=== PATIENT | male | born 1960 | race Caucasian/White ===

== ENCOUNTER 2023-11-10 08:52 | Outpatient (AMB) | payer BC, SELFPAY ==
--- NOTE | 2023-11-10 09:08 | HO.SPINEOV ---
Intake Visit Reasons: low back pain Intake Note: Mr. 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 HPI: This 62-year-old male has a history of a L4-5 lumbar microdiskectomy 2020 for left lumbar radiculopathy to which he responded well. He returns to my office with new complaints. He states he developed pain radiating to the outside of his lower leg and to a lesser degree to his left leg. The pain started approximately 3 months ago. He went to physical therapy which significantly aggravated the right lumbar radiculopathy. He can not sleep due to the pain. The pain is always there. There is no clear relationship with activities. 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 On exam there are no focal deficits. Straight leg raise is positive with radiating pain to the outside of his right lower leg. He had an MRI done on 09/27/2023 that shows [id number] lumbar stenosis in the low lumbar region. However, significant nerve compression is absent. The MRI was done before the start of the physical therapy the patient mentioned that his pain was aggravated following physical therapy and therefore I prefer to have a new MRI of the lumbar spine to determine what treatment options would be appropriate. If the MRI comes back similar to the previous MRI then I would like to refer for a epidural steroid injection. We will follow-up after the MRI. I spent 30 minutes in his consult to review documents, MRI and discussing plan of care. Nghia Lovelace MD, PhD Spine Fellowship Trained Neurosurgeon Director, [facility] Orders: Orders MR lumbar spine wo con Today M54.16 - Radiculopathy, lumbar region Coding Level of Care Code New Pt Level 3 (68422) Diagnoses Bilateral lumbar radiculopathy M54.16
== END 2023-11-10 09:33 | disposition home or self-care (01) ==
PROVIDERS: PCP Internal Medicine; Referring Provider Internal Medicine; Visit Provider Neurological Surgery
DX: M54.16 Radiculopathy, lumbar region (principal)
CPT/HCPCS: 99203

== ENCOUNTER → 2023-11-10 08:52 | Outpatient (BNVA) | payer BC, SELFPAY | PROVIDERS: PCP Internal Medicine; Visit Provider Neurological Surgery ==

== ENCOUNTER → 2023-12-04 19:32 | Outpatient (BNV) | payer BC, SELFPAY | PROVIDERS: PCP Internal Medicine; Visit Provider Radiology Diagnostic Radiology | DX: M54.16 Radiculopathy, lumbar region (principal) | CPT/HCPCS: 72148 ==

== ENCOUNTER 2023-12-04 19:39 | Outpatient (REF) | payer BC, SELFPAY ==
--- NOTE | ~2023-12-04 | MR_ITS ---
EXAMINATION: MR LUMBAR SPINE WITHOUT CONTRAST CLINICAL INFORMATION: Lumbar radiculopathy. Low back pain, radiating down right leg with associated weakness and numbness. Prior left-sided back surgery in 2020 at [facility]. COMPARISON: None available. TECHNIQUE: Multiplanar multisequence MR imaging of the lumbar spine was done without IV contrast. Examination was performed on a 1.5 Thao GE unit. Standard sequences utilized. FINDINGS: Coronal Alignment: Normal. Sagittal Alignment: Normal lordosis. There is a trace 2 mm degenerative retrolisthesis of L3 on L4, and a trace 2 mm retrolisthesis of L5 on S1. Lumbosacral Junction: Normal. There are 5 ppc-hys-aqiaizu lumbar-type vertebral bodies. Vertebral Bodies/Bone Marrow: Well maintained with normal height. No compression fractures, anomalies or other deformities. Mild edematous endplate changes are present at L4-L5. Minimal edematous changes oriented to the left at L5-S1. A few scattered Schmorl's nodes are evident in the endplates. Discs: Mild loss of disc height and signal T11-T12, T12-L1, and moderate loss at L4-L5. There is severe loss at L5-S1 with disc vacuum phenomenon. L1-L4 discs appear normal in height with minimal desiccation. Spinal Canal: There is a congenitally narrow spinal canal with short pedicles spanning L1-S1. This will exacerbate acquired spondylotic findings. Conus Medullaris: Terminates at L1 and is normal in signal and morphology. Distal cord is normal in signal and caliber. Intradural Nerve Roots: Normal in appearance without evidence of clumping or mass. Axial Disc Space Images: T12-L1: There are mild hypertrophic facet changes bilaterally. There is a minimal diffuse disc bulge. There is minimal central canal narrowing. No lateral recess narrowing. No significant neural foraminal narrowing. L1-L2: There is trace diffuse disc bulge. Mild to moderate hypertrophic facet changes bilaterally with posterior ligamentous thickening/involvement. Mild congenital spinal canal narrowing. Combination of findings resulting in mild central canal narrowing, mild subarticular recess narrowing bilaterally, and minimal bilateral neural foraminal narrowing. L2-L3: Shallow diffuse disc bulge is present, superimposed bilateral foraminal disc protrusions. Congenital spinal canal narrowing. Moderate hypertrophic degenerative facet changes bilaterally, with prominent posterior ligamentous thickening/infolding. There is mild to moderate central canal narrowing, mild to moderate right greater than left subarticular recess narrowing, and mild bilateral neural foraminal narrowing. There is no definite nerve root impingement or contact. L3-L4: Shallow diffuse bulging disc. Superimposed subtle central extruded component with annular fissuring. There are moderate bilateral hypertrophic degenerative facet changes with posterior ligamentous thickening/infolding. There is moderate central canal stenosis, moderate bilateral subarticular recess stenosis with contact but no deviation of the bilateral traversing L4 nerve roots. There is mild bilateral neural foraminal narrowing without exiting nerve root impingement. L4-L5: There has been a probable left hemilaminotomy at this level and microdiscectomy. Subtle retrolisthesis. Moderate disc degeneration. There is a diffuse disc bulge present with a superimposed broad-based central extruded component, which indents upon the ventral thecal sac, and results in moderate to severe central canal stenosis with reduction of the AP diameter diameter of the thecal sac to approximately 7 mm. There is central nerve root crowding. There are moderate hypertrophic facet changes. The left ligamentum flavum has been resected. There is severe bilateral subarticular recess stenosis with impingement of the traversing bilateral L5 roots. There is moderate to severe left and moderate right neural foraminal narrowing. There may be impingement of the exiting left L4 root. There is contact of the exiting right L4 root without impingement. L5-S1: There are bilateral foraminal disc osteophytic protrusions, left greater than right. There are ucxg-jm-[id number] hypertrophic degenerative facet changes bilaterally. No significant posterior ligamentous thickening. Findings are resulting in mild central canal narrowing, mild left greater than right subarticular recess narrowing with contact but no impingement of the traversing left greater than right S1 roots. There is moderate to severe left neural foraminal narrowing with flattening and mild impingement of the exiting left L5 root. There is mild to moderate right neural foraminal narrowing without definite impingement of the exiting right L5 root. Imaged SI Joints: Mild degenerative arthritis. Paravertebral and Included Extraspinal Soft Tissues: Aorta is normal in caliber. No adenopathy is evident. No paraspinous or paravertebral muscular abnormality. Partial imaged kidneys appear normal. MR/MR lumbar spine wo con IMPRESSION: 1. Multilevel lumbar spondylosis superimposed upon a congenitally narrow central canal. Findings are most significant at L4-L5 and L5-S1. Lesser significant findings at L3-L4. See above for details. 2. Probable postsurgical changes at L4-L5 of left hemilaminotomy and microdiscectomy. 3. Mild edematous endplate change is present at L4-L5, and to a lesser degree L5-S1.
== END 2023-12-04 19:40 | disposition home or self-care (01) ==
LOC: HO.MRI 19:39
PROVIDERS: PCP Internal Medicine; Visit Provider Neurological Surgery
DX: M54.16 Radiculopathy, lumbar region (principal)
CPT/HCPCS: 72148

== ENCOUNTER 2024-02-02 11:05 | Outpatient (REF) | payer BC, SELFPAY | END 2024-02-02 11:06 | disposition home or self-care (01) | LOC: HO.HOSX 11:05 | PROVIDERS: PCP Internal Medicine; Visit Provider Neurological Surgery | DX: M48.061 Spinal stenosis, lumbar region without neurogenic claudication (principal); M54.16 Radiculopathy, lumbar region | CPT/HCPCS: 72110 ==

== ENCOUNTER 2024-02-02 11:05 | Outpatient (AMB) | payer BC, SELFPAY ==
--- NOTE | 2024-02-02 11:30 | A.SPINEOV_ITS ---
Intake Visit Reasons: MRI follow up Intake Note: Mr. Lofton is here today to discuss the results of his MRI> Mechanical Engineering Intern Required: No Allergies No Known Allergies Allergy (Verified 11/10/23 09:09) Coding
--- NOTE | 2024-02-02 11:45 | HO.SPINEOV ---
Intake Visit Reasons: MRI follow up Allergies No Known Allergies Allergy (Verified 11/10/23 09:09) Assessment & Plan Assessment & Plan (1) Stenosis of lateral recess of lumbar spine: Code(s): M48.061 - Spinal stenosis, lumbar region without neurogenic claudication Category: Medical (2) Bilateral lumbar radiculopathy: Code(s): M54.16 - Radiculopathy, lumbar region Category: Medical Plan Dear colleague, On 02/02/2024 I saw for follow-up Keenan Lofton to review a repeat MRI of the lumbar spine. He suffering from severe bilateral lumbar radiculopathy where the right side is much more affected than the left side. The pain radiates in an L5 dermatome to the outside of his lower leg. The pain is not subsiding. He continues to take anti-inflammatory drugs. In the meantime he had an epidural steroid injection done by which gave him only improvement for 1 week. We reviewed the MRI of the lumbar spine which shows mild Modic changes at L4-5 but more importantly moderate L4-5 central stenosis and lateral recess stenosis which does influence the L5 nerve roots. I also excluded instability of the L4-5 segment today with an dynamic lumbar x-ray. I propose to do a right L4-5 laminotomy to decompress the L5 nerve root as his symptoms are not improving. He is scheduled for 03/21/2024. He is an otherwise healthy and he will obtain preoperative clearance from his primary care physician. I spent 25 minutes in his consult to review imaging and to discuss plan of care. Nghia Lovelace MD, PhD Spine Fellowship Trained Neurosurgeon Director, [facility] Orders: Orders XR lumbar spine 4V min Today M54.16 - Radiculopathy, lumbar region Coding Level of Care Code Est Pt Level 3 (64138) Diagnoses Stenosis of lateral recess of lumbar spine M48.061 Bilateral lumbar radiculopathy M54.16
== END 2024-02-02 12:07 | disposition home or self-care (01) ==
PROVIDERS: PCP Internal Medicine; Visit Provider Neurological Surgery
DX: M48.061 Spinal stenosis, lumbar region without neurogenic claudication (principal); M54.16 Radiculopathy, lumbar region
CPT/HCPCS: 99213

== ENCOUNTER → 2024-02-02 11:45 | Outpatient (BNV) | payer BC, SELFPAY | PROVIDERS: PCP Internal Medicine; Visit Provider Radiology Diagnostic Radiology | DX: M54.16 Radiculopathy, lumbar region (principal) | CPT/HCPCS: 72110 ==

== ENCOUNTER 2024-03-20 06:55 | Day surgery (SDC) | payer BC, SELFPAY ==
[2024-03-07 10:21] VITALS: BP 123/77; PULSE 73; RESP 20; O2SAT 97; BMI 28.3
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
[2024-03-07 12:23] LABS: Hematocrit 48.1 % (42.0-52.0); Mean Corpuscular HGB Conc 33.3 g/dl (31.0-36.0); Mean Corpuscular Hemoglobin 31.9 pg (27.0-33.0); Mean Platelet Volume 9.6 fL (9.4-12.4); Platelet Count 244 X10*3/uL (160-400); Red Blood Count 5.01 X10*6/uL (4.60-5.80); Red Cell Distribution Width 12.9 % (11.0-16.0); White Blood Count 7.6 X10*3/uL (4.8-10.8)
[2024-03-07 12:54] LABS: Anion Gap 10 (12-20); Blood Urea Nitrogen 15 mg/dL (9-16); Calcium 9.5 mg/dL (8.4-10.2); Carbon Dioxide 28 mmol/L (22-29); Chloride 105 mmol/L (96-108); Creatinine Clr Calc Pharmacy 70.7; Estimated Glomerular Filt Rate > 60; Glucose Random 93 mg/dL (60-115); Potassium 4.2 mmol/L (3.3-5.1); Sodium 139 mmol/L (135-145)
[2024-03-20] VITALS (7 sets, daily range): BP systolic 116–145; BP diastolic 63–82; PULSE 65–89; RESP 13–20; TEMP 36.2–36.9; O2SAT 93–98; BMI 28.6
[2024-03-20] MEDS: Gabapentin 300 MG CAPSULE PO (07:10)
[2024-03-20] MEDS: methocarbamoL 750 MG TABLET PO (07:10)
--- NOTE | 2024-03-20 07:22 | MHC.SHP ---
Pre-Procedural Eval Section A - 24 Hr Update-Section A only Date of Service: 03/20/24 Section B - Complete if H&P > 30 days Chief Complaint: Radiculopathy,Spinal stenosis, lumbar region Allergies: Allergies Allergy/AdvReac Type Severity Reaction Status Date / Time No Known Allergies Allergy Verified 11/10/23 09:09 Review of Systems Sugical H&P ROS: Negative: Constitution, Cardiovascular, Respiratory, Neurological, Psychiatric, Hem-Onc, Allergic/Immunologic, Gastrointestinal, Genitourinary, Musculoskeletal, Integumentary, Endocrine and Eyes/Ears/Nose/Throat Exam Surgical H&P Exam: Not Evaluated: HEENT, Not Evaluated: Heart, Not Evaluated: Lungs, Not Evaluated: Extremities, Not Evaluated: Abdomen, Not Evaluated: Skin and Not Evaluated: Neurological Exam Comment: The patient is awake, alert in no acute distress. Plan Diagnosis/Plan: Unchanged I have reviewed the history and physical and performed a pertinent physical examination on my patient. No changes have occurred unless specified. Plan remains the same, L4-5 right-sided lumbar decompression. Time Spent With Patient Time: Total time managing care of this patient today __15__ minutes.
[2024-03-20] MEDS: Lactated Ringers 1,000 ML 100 ML IVCONT (07:26)
--- NOTE | 2024-03-20 10:35 | P.OP_ITS ---
Operative Note Operative Note Date of Service: 03/20/24 Narrative: Preoperative Diagnosis: Right spinal stenosis/lateral recess stenosis/neural foraminal stenosis Operation: Right L4-5 Laminotomy, Partial facetectomy and foraminotomy with use of microscope Consent Informed Consent was obtained for this operation. I have explained the nature, purpose and benefits of the operation. I have discussed the risks and benefit of the operation including possible complications or adverse events with patient/family. Alternative(s) were discussed with the patient with their relative benefits and risks as well as the consequences of not accepting the operation were included in obtaining consent. Surgeon: NISHANT VILLANUEVA MD, PHD Procedure Assisted By: Saman Castellon PA-C Description of Procedure This 63-year-old male suffering from a right lumbar radiculopathy. He had a previous left L4-5 microdiskectomy done with good result. He was offered a decompression of the lateral recess to decompress the right L5 nerve root.. The procedure complications were explained. The patient was consented. The patient was brought to the operating room and endotracheally intubated. The patient was turned in prone position on the Raad frame. Prep and drape was done followed by timeout. The Physician patient care nursing assistant provided access. A mid lumbar incision was made followed by release of the paravertebral muscle on the right side to expose the right L4-5 lamina and facet joints. An intraoperative x-ray was obtained to confirm the correct level. The microscope was brought in. I took over the procedure. The high-speed drill was used to do a right L4-5 laminotomy until flavum ligament was reached. A #2 Kerrison was used to expand the laminotomy near flush to the pedicles and to include a partial facetectomy. The flavum ligament was opened and resected with a #3 Kerrison to decompress the underlying thecal sac. The flavum ligament was removed to decompress the lateral recess and the exiting L5 nerve root. I did turn the patient contralateral lead to make sure there was no central spinal stenosis. I removed more flavum ligament and then epidural fat was visible as a sign that there was no severe compression of the central canal. A long nerve hook could be easily passed along the medial side of the pedicle as a sign of adequate decompression. The microscope was removed. Hemostasis was done. The physician patient care nursing assistant close the Incision in 2 layers. Steri-Strips were used to approximate incision. An OpSite with Tegaderm was used to cover the incision. All sponge needle counts were correct. Patient was extubated and transported in stable is to recovery room. Anesthesia: General Estimated Blood Loss (ml): 30 Complications: None Duration of Surgery: Under 60 Minutes Postoperative Plan: Discharge to home
--- NOTE | 2024-03-20 10:37 | P.DS_ITS ---
DS: Providers Provider Date of Service: 03/20/24 Primary care physician: Richard Gallegos MD DS: Summary Time Attestation Discharge Coordination Time (in mins): 15 Quality: Safe Use of Opioids Does Pt have an Active Cancer Diagnosis on the Problem List?: No Quality: Stroke Does the patient have a stroke diagnosis?: No Physical Exam Vital Signs: Vital Signs: Last Vital Signs Temp 98.5 F 03/20/24 07:18 Pulse 68 03/20/24 07:18 Resp 20 03/20/24 07:18 BP 145/82 H 03/20/24 07:18 Pulse Ox 98 03/20/24 07:18 O2 Del Method Room Air 03/20/24 07:18 BMI result Body Mass Index 28.6 Discharge Plan Discharge Patient Disposition: Home, Self-Care Referrals: Richard Gallegos MD [Primary Care Provider] - 1 Week Discharge Medications: New oxycodone 5 mg tablet 5 mg PO Q6H PRN (Reason: severe pain (scale score 7-10)) Qty: 30 0RF Rx Instructions: Partial Fill upon patient request. Continued multivitamin Tablet 1 tab PO DAILY atorvastatin 20 mg tablet 20 mg PO DAILY amoxicillin 500 mg tablet 2,000 mg PO ONCE coenzyme Q10 [Co Q-10] 400 mg Capsule 400 mg PO DAILY PreserVision AREDS 2,148 mcg-113 mg-45 mg-17.4mg Tablet 1 tab PO DAILY Rx Instructions: administer with AM and PM meals Held aspirin 81 mg Tablet,Delayed Release (Dr/Ec) 81 mg PO DAILY Hold Instructions: Resume on 03/23/24. hold for 3 days postop Discharge Orders: Discharge Order (Routine); Ordered 03/20/24 Ordered By: Saman Castellon Diet: Advance to usual diet Activity on Discharge: As tolerated Activity Restrictions/Additional Instructions: Activity: It is normal to feel some discomfort as you increase your activity, but that will improve with time. We ask you avoid heavy lifting or acitivities that cause pain. As a general rule, 8lbs is a safe limit for lifting right after surgery. Walk as much as you feel comfortable but not to exhaustion. You will feel extra tired the first few days after surgery. Stay well hydrated. It is OK to walk up and down stairs You may return to driving when you are off narcotics (such as vicodin, oxyco done, dilaudid, etc), and you are back to normal functional capacity. If you have any concerns please check with office before driving. Return to work is specific to each patient and each surgery, so please speak with your doctor/PA at first follow up. Please bring paperwork such as FMLA at that time if you need it filled out. Medications: We recommend you take 1,000mg Tylenol every 8 hours for the first few weeks after surgery, if you do not have any liver issues and can tolerate this medication. Do not exceed 4,000mg daily. We will give you a short supply of narcotics after surgery (usually one weeks worth). If you need more please call the office but do not use more than prescribed. You will need to give our office 48 hours notice if you need narcotics refilled and we do not fill narcotics on weekends or evenings. If you are on a narcotic, it is a good idea to take a stool softener such as colace or senna to avoid constipation If you take blood thinner such as aspirin, Plavix, Coumadin, Effient, Eliquis etc for conditions such as Afib, DVT, Pulmonary embolus, coronary disease, stents etc please speak with your surgeon about specific details as to when you can resume these medications. You can resume NSAIDs on post op day 1 (eg: Motrin, Naproxen, etc). Follow up: Please call the office, , after surgery to arrange a 3 week follow up for wound check. Wound Care: You may remove your dressing on the first day after surgery. ?You may ?leave open to air. Please do not remove the steri strips underneath. they will fall off on their own in one week. IT IS NORMAL FOR THE WOUND TO OOZE OR BE BLOODY FOR A FEW DAYS AFTER SURGERY. ?IF THIS HAPPENS JUST PLACE NEW DRESSING OVER IT TO AVOID STAINING CLOTHES. You may shower on post op day # 1 We ask that you do not let the water soak the wound. If it does get wet, just towel dry lightly. Please do not scrub your incision or place any type of chemical/ointment on the wound. No tub baths, pools or jacuzzis for one month. If you have any leaking or redness from your wound, or fevers, please call the office. Print Language: Wallisian
== END 2024-03-20 12:17 | disposition home or self-care (01) ==
PROVIDERS: Nurse Practitioner; PCP Internal Medicine; Visit Provider Neurological Surgery
PROC: (CPT 63047; principal; 2024-03-20 09:10)
DX: M48.061 Spinal stenosis, lumbar region without neurogenic claudication (principal); M54.16 Radiculopathy, lumbar region; I10 Essential (primary) hypertension; E78.00 Pure hypercholesterolemia, unspecified; Z95.2 Presence of prosthetic heart valve; G47.30 Sleep apnea, unspecified; R42 Dizziness and giddiness; Z79.82 Long term (current) use of aspirin; Z79.899 Other long term (current) drug therapy; Z98.890 Other specified postprocedural states
CPT/HCPCS: 63047; 36415; 80048; 85027; J0131; J0690; J1100; J2003; J2250; J2405; J2704; J3010

== ENCOUNTER → 2024-03-20 06:55 | Outpatient (BNV) | payer BC, SELFPAY | PROVIDERS: PCP Internal Medicine; Visit Provider Neurological Surgery | DX: M48.061 Spinal stenosis, lumbar region without neurogenic claudication (principal) | CPT/HCPCS: 63047; 99499 ==

== ENCOUNTER 2024-04-12 13:39 | Outpatient (AMB) | payer BC, SELFPAY ==
--- NOTE | 2024-04-12 14:29 | A.SPINEOV_ITS ---
Intake Visit Reasons: 1st post op Intake Note: Mr. Lofton is here today for his 1st post-op. 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 Unfortunately he has not had any relief of his symptoms. He still has the pain going down his leg into his calf. His wound is healing up well, his strength is normal. I told him we would re-evaluate in 6 weeks, possibly order a new MRI if he is not improving at that point. Tello Lovelace MD, PhD [facility] Coding Level of Care Code Global (77705) Diagnoses Stenosis of lateral recess of lumbar spine M48.061
== END 2024-04-12 14:51 | disposition home or self-care (01) ==
LOC: HO.HNS 13:40
PROVIDERS: PCP Internal Medicine; Visit Provider Physician Assistant
DX: M48.061 Spinal stenosis, lumbar region without neurogenic claudication (principal)
CPT/HCPCS: 99024

== ENCOUNTER → 2024-04-12 13:39 | Outpatient (BNVA) | payer BC, SELFPAY | PROVIDERS: PCP Internal Medicine; Visit Provider Physician Assistant ==

== ENCOUNTER 2024-05-21 | Outpatient (REF) | payer BC, SELFPAY ==
[2024-05-21] MEDS: gadobutroL 10 ML VIAL IVPUSH (16:38)
== END 2024-05-21 00:01 | disposition home or self-care (01) ==
LOC: HO.MRI
PROVIDERS: PCP Internal Medicine; Visit Provider Physician Assistant
DX: M48.061 Spinal stenosis, lumbar region without neurogenic claudication (principal)
CPT/HCPCS: 72158; A9585

== ENCOUNTER 2024-05-24 13:20 | Outpatient (REF) | payer BC, SELFPAY ==
--- NOTE | ~2024-05-24 | XR_ITS ---
EXAMINATION: XR LUMBAR SPINE CLINICAL INFORMATION: Spinal stenosis, lumbar region without neurogenic claudication M48.061. COMPARISON: XR Lumbar spine 02/02/2024 TECHNIQUE: AP and lateral views of the lumbar spine including lateral flexion and extension FINDINGS: Normal vertebral body height and alignment. No spondylolisthesis. No evidence of instability with flexion or extension. There is moderate to severe degenerative disc disease at L5/S1. Mild degenerative disc disease seen at L4/5. Posterior facet joint arthropathy seen in the lower lumbar spine. XR/XR lumbar spine 4V min IMPRESSION: Degenerative disc disease and posterior facet joint arthropathy as described above. Electronically signed by: Justyn Maya MD 06/04/2024 01:04 PM EST
== END 2024-05-24 13:21 | disposition home or self-care (01) ==
LOC: HO.HOSX 13:20
PROVIDERS: PCP Internal Medicine; Visit Provider Physician Assistant
DX: M48.061 Spinal stenosis, lumbar region without neurogenic claudication (principal)
CPT/HCPCS: 72110

== ENCOUNTER 2024-05-24 13:20 | Outpatient (AMB) | payer BC, SELFPAY ==
--- NOTE | 2024-05-24 13:32 | HO.SPINEOV ---
Intake Visit Reasons: 2nd post op Intake Note: Mr. Lofton is here today for his 2nd post op. 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 Unfortunately he had no relief of his pain. His postoperative MRI shows excellent decompression of the previously seen lateral recess stenosis. Dr. Lovelace and I reviewed the films together as well as flexion-extension x-rays here in the office which does not show any signs of occult instability. Think what he is dealing with now is a radiculopathy that did not respond to surgery. We discussed the possibility of a spinal cord stimulator and he is interested , so I will refer him to who does interventional pain management. Tello Lovelace MD, PhD [facility] Orders: Orders XR lumbar spine 4V min Today M48.061 - Spinal stenosis, lumbar region without neurogenic claudication Referrals Pain Management Referral M48.061 - Spinal stenosis, lumbar region without neurogenic claudication Coding Level of Care Code Global (02616) Diagnoses Stenosis of lateral recess of lumbar spine M48.061
== END 2024-05-24 15:16 | disposition home or self-care (01) ==
PROVIDERS: PCP Internal Medicine; Visit Provider Physician Assistant
DX: M48.061 Spinal stenosis, lumbar region without neurogenic claudication (principal)
CPT/HCPCS: 99024

== ENCOUNTER 2024-06-21 14:08 | Outpatient (AMB) | payer BC, SELFPAY ==
--- NOTE | 2024-06-21 14:26 | HO.SPINEOV ---
Intake Visit Reasons: pain after surgery Intake Note: Mr. 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 He underwent an L4-5 lumbar decompression which unfortunately did not provide any relief. We even did a repeat MRI scan that shows a small L4-5 disc bulge with possible influence of the left L5 nerve root but the right L5 nerve root looks free. His symptoms are predominantly on the right side in an L5 distribution. When extensive discussion and I have a hard time recommended any additional surgeries. I would like to send him back to for a right L5 block and depending on the response to the injection revisit the possibility of surgery. However, we have to take into account that subset of patients just does not respond to any form of surgery. He will also try Tylenol for the pain. I spent 30 minutes in his consult to review imaging, discussing plan of care and answer questions Thank you for allowing me take care of your patient. Nghia Lovelace MD, PhD [facility] Trained Neurosurgeon Director, [facility] Orders: Referrals Physiatry Referral M54.16 - Radiculopathy, lumbar region Coding Level of Care Code Est Pt Level 4 (06256) Diagnoses Lumbar radiculopathy, right M54.16
== END 2024-06-21 15:54 | disposition home or self-care (01) ==
PROVIDERS: PCP Internal Medicine; Visit Provider Neurological Surgery
DX: M54.16 Radiculopathy, lumbar region (principal)
CPT/HCPCS: 99214

== ENCOUNTER → 2024-06-21 14:08 | Outpatient (BNVA) | payer BC, SELFPAY | PROVIDERS: PCP Internal Medicine; Visit Provider Neurological Surgery ==